=== PATIENT | female | born 1985 | race Caucasian/White ===

== ENCOUNTER 2021-10-31 22:31 | Emergency (ER) | payer MEDICAID, SELFPAY ==
[2021-10-31 22:32] VITALS: BP 159/91; PULSE 114; RESP 18; TEMP 36.3; O2SAT 98; BMI 23.3
--- NOTE | 2021-10-31 22:55 | EDS_ITS ---
HPI HPI - Female History of Present Illness Chief Complaint: Vag Bld, Preg Detail of Chief Complaint: First trimester bleeding Informant: patient and parent Pain Pain: Positive for Pelvic Pain and Vaginal Pain; Negative for Vulvar Pain Onset: Today Context: Sudden Onset Timing: Waxes and wanes Quality: Positive for Cramping Location: RLQ, LLQ and Suprapubic Current Severity: Mild Maximum Severity: Moderate Worsened by: - (Nothing) Relieved by: - (Nothing) Bleeding Issue: Positive for Vaginal bleeding; Negative for Passing clots and Passing tissue Onset: Today Context: Sudden Onset Timing: Continuous Current Severity: Spotting Maximum Severity: Mild Associated Symptoms Associated Symptoms: Positive for Frequency and Missed Period (6 weeks gestation); Negative for Dysuria, Urgency and Hematuria Test: Positive Sexually: Positive for Active Control: No control P: 0 Narrative Narrative: Patient is a 36-year-old woman who presents with vaginal bleeding. This is her first . She believes she is O- but uncertain. She states she is the universal donor. does not know blood type. She has had minimal spotting that started hours prior to presentation. She is complaining of crampy by lateral lower abdominal/inguinal pain. She does report frequency otherwise no urologic symptoms. She denies any GI symptoms other than the pain peer [facility] Medical History no medical history no medical history Allergy/AdvReac Type Severity Reaction Status Date / Time No Known Allergies Allergy Verified 10/31/21 22:34 Family History no significant family his no significant family history Social History (Updated 10/31/21 @ 23:[address] Raleigh Bass MD) household members: spouse Smoking Status: Never smoker substance use type: does not use ROS ROS ED Constitutional Constitutional ED: Denies chills, fever(s), subjective or sweats Eyes Eyes: Denies blurry vision, change in vision or diplopia Cardiovascular Cardiovascular: Denies chest pain, palpitations or racing heartbeat Respiratory/Chest Respiratory/Chest: Denies cough or dyspnea Gastrointestinal Gastrointestinal: Reports abdominal pain; Denies constipation, diarrhea, nausea or vomiting Genitourinary Genitourinary ED: Reports vaginal bleeding; Denies dysuria, hematuria, urinary frequency or vaginal discharge Musculoskeletal Musculoskeletal: Denies arthralgias, myalgias, neck pain or other Neurologic Neurologic: Denies headache(s), paresthesias or weakness Hematologic/Lymphatic Hematologic/Lymphatic: Denies easy bleeding, easy bruising or lymphadenopathy EXAM Physical Exam Const Vital Signs: 10/31/21 22:32 Temperature 97.4 F L Temperature Source Temporal Pulse Rate 114 H Respiratory Rate 18 Blood Pressure 159/91 H Blood Pressure Mean 113 Pulse Ox 98 Oxygen Delivery Method Room Air Positive well nourished and well developed General Appearance ED: well developed and NAD; Negative for pallor HEENT Reports moist mucous membranes Negative for trauma or tenderness Eyes PERRL and EOMs intact bilaterally General Eye ED: Negative for pale conjunctiva Neck no lymphadenopathy, supple and no JVD Resp normal respiratory effort and clear to auscultation bilaterally Cardio regular rate, regular rhythm, S1 normal heart sound, no murmurs and no JVD GI normal to inspection, nondistended, normoactive bowel sounds, soft to palpation, non-tender and non-distended no CVA tenderness External Female Exam: normal appearance of the urethra; Negative for inguinal lymphadenopathy Speculum Exam - Vagina: vaginal bleeding scant; Negative for tissue present in vagina, vaginal mass, vaginal swelling, vaginal tenderness, vaginal polyp or vaginal discharge Speculum Exam - Cervix: cervical os closed and cervical bleeding; Negative for nulliparous, cervical lesion, cervical mass, cervical laceration or cervical tenderness Bimanual Exam - Vag & Uterus: normal vaginal palpation, normal cervical palpation, bladder normal to palpation, uterine shape normal, uterine consistency normal and uterus non-tender; Negative for cervical motion tenderness or uterine size normal Bimanual Exam - Adnexa, Other: normal adnexae Back/Spine no CVA tenderness Extremity normal to inspection and full ROM General Extremety ED: Negative for edema or tenderness General Extremity: Negative for edema Neuro oriented x3 and CN's II-XII intact bilaterally Sensorium / Orientation: alert Psych Mood & Affect: anxious Skin no rashes or lesions noted and no wounds General Skin Exam: Negative for jaundice or pallor MDM MDM MDM Narrative Medical decision making narrative: Patient presents with vaginal bleeding. Since blood type is unknown and there is concern that patient may have Rh- blood will obtain ABO Rh. Serum quantitative hCG was ordered. Since patient has no adnexal tenderness uterus is may be slightly enlarged concern patient may have a miscarriage since she has an elliptical/horizontal appearing external cervical os. Or she may have had a with miscarriage that she was unaware of. Lab Data Attestation: I reviewed the patient's lab results. Labs: Laboratory Results - last 24 hr 10/31/21 10/31/21 10/31/21 22:50 22:50 22:50 HCG, Quant 91 H Blood Type TNP O POSITIVE Based on dates would expect quantitative hCG to be much higher. Suspect patient's had a AB. Will order repeat quantitative hCG to be performed in 48 to 72 hours. Discharge Plan Triage Chief Complaint: Vag Bld, Preg ED Provider: Raleigh Bass Dx/Rx/DC Orders Clinical Impression: Miscarriage, threatened, early Instructions: ED Possible Miscarriage ... Primary Care Provider: Care Physician,No Primary Referrals: Ijeoma Wallace DO [STAFF PHYSICIAN] - Keep Shraddha appointment Care Physician,No Primary [Primary Care Provider] - Activity Restrictions/Additional Instructions: Your blood type is O+ Disposition Disposition: Home, Self Care
[2021-10-31 23:27] LABS: hCG Titer Quant., Serum 91 mIU/mL (1-3)
== END 2021-11-01 00:04 | disposition home or self-care (01) ==
PROVIDERS: Emergency Provider Emergency Medicine; Visit Provider Emergency Medicine
DX: O20.0 Threatened abortion (principal); Z3A.01 Less than 8 weeks gestation of pregnancy
CPT/HCPCS: 84702; 86900; 86901; 99283; A4216

== ENCOUNTER 2021-11-03 09:21 | Outpatient (CLI) | payer MEDICAID, SELFPAY ==
[2021-11-03 10:33] LABS: hCG Titer Quant., Serum 19 mIU/mL (1-3)
== END 2021-11-03 23:59 | disposition home or self-care (01) ==
PROVIDERS: Referring Provider Student in an Organized Health Care Education/Training Program; Visit Provider Student in an Organized Health Care Education/Training Program
DX: O20.0 Threatened abortion (principal); Z3A.00 Weeks of gestation of pregnancy not specified
CPT/HCPCS: 36415; 84702

== ENCOUNTER 2021-11-09 11:40 | Outpatient (CLI) | payer MEDICAID, SELFPAY ==
[2021-11-09 13:52] LABS: hCG Titer Quant., Serum 4 mIU/mL (1-3)
== END 2021-11-09 23:59 | disposition home or self-care (01) ==
LOC: WOBLAB 11:41
PROVIDERS: Visit Provider Student in an Organized Health Care Education/Training Program
DX: O20.0 Threatened abortion (principal); Z3A.00 Weeks of gestation of pregnancy not specified
CPT/HCPCS: 36415; 84702

== ENCOUNTER → 2022-01-07 | Outpatient (CLI) | payer MEDICAID, SELFPAY ==
[2022-01-07 14:22] LABS: hCG Titer Quant., Serum 10025 mIU/mL (1-3)
== END | disposition home or self-care (01) ==
PROVIDERS: Referring Provider Obstetrics & Gynecology; Visit Provider Obstetrics & Gynecology
DX: O20.0 Threatened abortion (principal); O99.891 Other specified diseases and conditions complicating pregnancy; N91.2 Amenorrhea, unspecified; Z3A.00 Weeks of gestation of pregnancy not specified
CPT/HCPCS: 36415; 84702